=== PATIENT | male | born 1985 | race Caucasian/White ===

== ENCOUNTER → 2022-09-02 | Outpatient (CLI) | payer BC ==
[2022-09-02 14:10] VITALS: BP 132/74
--- NOTE | 2022-09-02 16:21 | Cardiology Stress Test Report ---
Stress Test Report Date of Procedure/Referring: Date of Procedure: September 02, 2022 PCP Anabella Mandel MD Admitting Physician Admitting Physician: Attending Physician: Ramez Meek MD Baseline Heart Rate: 83 Baseline Blood Pressure: Blood Pressure Systolic: 132 Blood Pressure Diastolic: 74 Baseline EKG: Baseline EKG: NSR Summary/Conclusion: Summary: In summary, the patient started exercising with a baseline heart rate, blood pressure and EKG mentioned above Patient was able to exercise for a total of 7 minutes on Caesar protocol, METs 8.5 Maximum heart rate 161 Maximum blood pressure 200/67 Stress EKG, Minimal nondiagnostic changes Recovery EKG , Return to baseline Conclusion: 1. Good exercise tolerance for a total of 7 minutes on Caesar protocol, 8.5 METs, achieving 88 percent of maximum expected heart rate 2. Minimal nondiagnostic EKG changes with exercise returned to baseline during recovery 3. No arrhythmia was noted 4. Hypertensive response to exercise with peak blood pressure 200/67 return to baseline during recovery Copy Copies To 1: ANABELLA MANDEL MD, BASHAR J MD September 02, 2022 16:21
== END ==
LOC: CARD 13:00
PROVIDERS: ATTEND Internal Medicine Cardiovascular Disease
DX: I25.10 Atherosclerotic heart disease of native coronary artery without angina pectoris (principal); I10 Essential (primary) hypertension
CPT/HCPCS: 93017; C8929; 93306